=== PATIENT | male | born 1980 | race Hispanic/Latino ===

== ENCOUNTER 2018-09-16 02:48 | Emergency (ER) | payer SELFPAY ==
[2018-09-16 03:28] VITALS: BP 158/95
--- NOTE | 2018-09-16 04:19 | XRay Report ---
PROCEDURE: XR FOOT BILAT 3+V TECHNIQUE: 3 views of each foot were obtained. HISTORY: pain - injury COMPARISONS: None FINDINGS: The left foot shows no evidence of fracture or soft tissue injury. There is a small plantar calcaneal spur. The right foot shows no evidence of fracture or soft tissue injury. IMPRESSION: No evidence of fracture or soft tissue injury in either foot.. This document is electronically signed by Imer Fuller MD., Sep 16 2018 04:16:34 AM ET
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
== END 2018-09-16 04:45 | disposition home or self-care (01) ==
LOC: ED 02:48
DX: S96.911A Strain of unspecified muscle and tendon at ankle and foot level, right foot, initial encounter (principal); S96.912A Strain of unspecified muscle and tendon at ankle and foot level, left foot, initial encounter; W50.2XXA Accidental twist by another person, initial encounter; Y93.02 Activity, running; Y92.098 Other place in other non-institutional residence as the place of occurrence of the external cause; Y99.8 Other external cause status
CPT/HCPCS: 99283